=== PATIENT | female | born 1985 | race American Indian/Alaskan Native ===

== ENCOUNTER 2017-11-05 07:05 | Emergency (ER) | payer SELFPAY ==
[2017-11-05 07:18] VITALS: BMI 34.0
[2017-11-05 07:21] VITALS: BP 124/80; RESP 18
--- NOTE | 2017-11-05 07:37 | ED PDOC ---
Arrival/HPI - General Chief Complaint: Lower Extremity Problem/Injury Time Seen by Provider: 11/05/17 07:24 Historian: Patient - History of Present Illness Narrative History of Present Illness (Text): 11/05/17 07:25 Vangie Christian is a 31 year old female, whose past medical history includes anemia, who presents to the emergency department complaining of leg pain after falling into a concrete hole two nights ago at 2:00 AM. Patient notes she has a sore and swollen leg and sprained ankle. Patient denies tetanus shot. Patient's last known period was about two weeks ago. Patient denies any fevers, chills, use of control, chest pain, shortness of breath, abdominal pain, nausea, vomiting, diarrhea, back pain, neck pain, urinary symptoms, headache, dizziness , or any other complaint. Time/Duration: Other (fell into hole 2 nights ago) Symptom Onset: Sudden Symptom Course: Unchanged Quality: Aching Activities at Onset: Light Context: Walking Past Medical History - Provider Review Nursing Documentation Reviewed: Yes - Cardiac Hx Cardiac Disorders: No - Pulmonary Hx Respiratory Disorders: No - Neurological Hx Neurological Disorder: No - HEENT Hx HEENT Disorder: No - Renal Hx Renal Disorder: No - Endocrine/Metabolic Hx Endocrine Disorders: No - Hematological/Oncological Hx Blood Disorders: No - Integumentary Hx Dermatological Disorder: No - Musculoskeletal/Rheumatological Hx Musculoskeletal Disorders: No - Gastrointestinal Hx Gastrointestinal Disorders: No - Genitourinary/Gynecological Hx Genitourinary Disorders: No - Psychiatric Hx Psychophysiologic Disorder: No Hx Substance Use: No Family/Social History - Physician Review Nursing Documentation Reviewed: Yes Family/Social History: No Known Family HX Smoking Status: Never Smoked Hx Alcohol Use: No Hx Substance Use: No Allergies/Home Meds Allergies/Adverse Reactions: Allergies No Known Allergies Allergy (Verified 11/05/17 07:18) Review of Systems - Physician Review All systems were reviewed & negative as marked: Yes - Review of Systems Constitutional: Normal Eyes: Normal ENT: Normal Respiratory: Normal Cardiovascular: Normal Gastrointestinal: Normal Genitourinary Female: Normal Musculoskeletal: Joint Swelling (patient notes leg swelling), Other (sprained ankle) Skin: Other (sscratches on left leg's knee) Neurological: Normal Endocrine: Normal Hemo/Lymphatic: Normal Psychiatric: Normal Physical Exam Vital Signs Reviewed: Yes Vital Signs Temp Pulse Resp BP Pulse Ox 11/05/17 07:18 98.3 F 91 H 18 124/80 100 Temperature: Afebrile Blood Pressure: Normal Pulse: Regular Respiratory Rate: Normal Appearance: Positive for: Well-Appearing, Non-Toxic Pain Distress: Mild Mental Status: Positive for: Alert and Oriented X 3 - Systems Exam Head: Present: Atraumatic, Normocephalic Pupils: Present: PERRL Extroacular Muscles: Present: EOMI Conjunctiva: Present: Normal Respiratory/Chest: Present: Clear to Auscultation, Good Air Exchange. No: Respiratory Distress, Accessory Muscle Use Cardiovascular: Present: Regular Rate and Rhythm, Normal S1, S2. No: Murmurs Upper Extremity: Present: Normal Inspection. No: Cyanosis, Edema Lower Extremity: Present: Normal Inspection, Neurovascularly Intact. No: Swelling, Deformity (no obvious deformity) Neurological: Present: GCS=15, CN II-XII Intact, Speech Normal Skin: Present: Abrasion (multiple abrasions to left leg ) Psychiatric: Present: Alert, Oriented x 3, Normal Insight, Normal Concentration Medical Decision Making ED Course and Treatment: 11/05/17 07:25 Impression: 31 year old female presents to the emergency department for leg pain after falling into a concrete hole 2 nights ago. Differential Diagnosis included but are not limited to: Plan: -- X-Ray of ankle left 3 views routine -- X-Ray of knee with patella left 3 views -- Motrin -- Reassess and disposition Progress Notes: 11/05/17 08:40 X-Ray of knee read by me, shows: normal reading X-Ray of ankle read by me, shows: normal reading. - RAD Interpretation Radiology Orders: 11/05/17 07:44 ANKLE LEFT 3 VIEWS ROUTINE [RAD] Stat KNEE WITH PATELLA LEFT 3 VIEW [RAD] Stat Loading Unit Operator: ED Physician - Medication Orders Current Medication Orders: Discontinued Medications Ibuprofen (Motrin Tab) 800 mg PO STAT STA Stop: 11/05/17 08:47 Last Admin: 11/05/17 08:55 Dose: 800 mg Ibuprofen (Motrin Tab) 800 mg PO STAT STA Stop: 11/05/17 09:03 - Scribe Statement The provider has reviewed the documentation as recorded by the Scribe Ebony Roldan All medical record entries made by the Scribe were at my direction and personally dictated by me. I have reviewed the chart and agree that the record accurately reflects my personal performance of the history, physical exam, medical decision making, and the department course for this patient. I have also personally directed, reviewed, and agree with the discharge instructions and disposition. Disposition/Present on Arrival - Present on Arrival Any Indicators Present on Arrival: No History of DVT/PE: No History of Uncontrolled Diabetes: No Urinary Catheter: No History of Decub. Ulcer: No History Surgical Site Infection Following: None - Disposition Have Diagnosis and Disposition been Completed?: Yes Diagnosis: Contusion, Sprain and strain Disposition: HOME/ ROUTINE Disposition Time: 09:03 Patient Plan: Discharge Patient Problems: Current Active Problems Problem Status Onset Contusion Acute Sprain and strain Acute Condition: GOOD Discharge Instructions (ExitCare): Ankle Sprain, Contusion (DC) Additional Instructions: Ms Christian - Sorry this happened to you. Ice and elevation are best. Motrin will help with the pain and swelling. Follow up with Orthopedics Return to us if any problems. Daryl- Dr. Kit Epperson Prescriptions: Ibuprofen [Motrin Tab] 800 mg PO TID #30 tab Referrals: Thomas Sahni DO [Staff Provider] - Follow up with primary Forms: [facility] (Polish), WORK NOTE, SCHOOL NOTE
--- NOTE | 2017-11-05 09:18 | RAD ---
Date of service: 11/05/2017 PROCEDURE: Left Ankle Radiographs. HISTORY: fall into a deep hole sunday COMPARISON: None FINDINGS: BONES: Normal. No fracture. JOINTS: Normal. No osteoarthritis. Ankle mortise maintained. Talar dome intact SOFT TISSUES: Normal. OTHER FINDINGS: None. IMPRESSION: Normal left ankle radiographs.
--- NOTE | 2017-11-05 09:19 | RAD ---
Date of service: 11/05/2017 PROCEDURE: Left Knee and patella Radiographs. HISTORY: Pain. COMPARISON: None. FINDINGS: BONES: Normal. No fracture. JOINTS: Normal. No osteoarthritis. JOINT EFFUSION: None. OTHER FINDINGS: None. IMPRESSION: Normal radiographs of the left knee.
[2017-11-05 09:34] VITALS: PULSE 90; TEMP 98.1; O2SAT 98
== END 2017-11-05 09:34 | disposition home or self-care (01) ==
LOC: ED 07:05 → MERGE 07:05 → ED 09:34
DX: S80.12XA Contusion of left lower leg, initial encounter (principal); S83.422A Sprain of lateral collateral ligament of left knee, initial encounter; S86.912A Strain of unspecified muscle(s) and tendon(s) at lower leg level, left leg, initial encounter; W17.2XXA Fall into hole, initial encounter; Y92.410 Unspecified street and highway as the place of occurrence of the external cause